=== PATIENT | female | born 1960 | race Caucasian/White ===

== ENCOUNTER → 2018-04-28 | Outpatient (CLI) | payer OTHER ==
[~2018-04-28] MED LIST: IMIQUIMOD1 EACH; Zofran Odt4 MG SL
== END | disposition home or self-care (01) ==
LOC: LAB SHORT 10:37 → PLD 10:37
DX: D48.5 Neoplasm of uncertain behavior of skin (principal)
CPT/HCPCS: 88305

== ENCOUNTER → 2019-09-15 | Outpatient (CLI) | payer OTHER ==
[2019-09-16 13:18] LABS: Stool Occult Blood Guaiac 1 Neg (Neg)
== END ==
LOC: LAB UCHC 15:44 → LAB SHORT 15:44 → LAB SO 09-05 12:15 → LAB FUT 09-05 12:15
PROVIDERS: Registered Nurse Community Health
DX: N95.0 Postmenopausal bleeding (principal); G47.00 Insomnia, unspecified; R63.4 Abnormal weight loss
CPT/HCPCS: 82270

== ENCOUNTER → 2023-06-23 | Outpatient (CLI) | payer OTHER | LOC: LAB SHORT 09:32 → LAB 09:32 | DX: H10.13 Acute atopic conjunctivitis, bilateral (principal) | CPT/HCPCS: 87070; 87205 ==

== ENCOUNTER 2024-02-17 11:39 | Observation (INO) | payer OTHER ==
[~2024-02-17] VITALS: Ht 160 cm; Wt 51.5 kg
[~2024-02-17 11:39] MED LIST changes: -AMLO5 PO; -Acetaminophen650 M1 PO; -NITR100CA PO
[2024-02-17] MEDS ORDERED: NS 1,000 ML IV SCH ×5 (11:50→18:30)
[2024-02-17 12:42] LABS: Magnesium, Blood 2.5 mg/dL (1.6-2.4)
[2024-02-17] MEDS ORDERED: Potassium Chloride 20 MEQ TabCR PO ONE (14:55)
[2024-02-17] MEDS ORDERED: Potassium Chl 10MEQ/Water100ML 100 ML IV ONE (15:55)
[2024-02-17] MEDS ORDERED: Acetaminophen 325 MG TABLET PO PRN (17:40)
[2024-02-17 17:47] LABS: Influenza A, PCR NEGATIVE (NEGATIVE); Influenza B, PCR NEGATIVE (NEGATIVE); Resp Syncytial Virus, PCR NEGATIVE (NEGATIVE); SARS-Cov-2 (COVID-19) PCR, MMC NEGATIVE (NEGATIVE)
[2024-02-17 18:24] LABS: Source, Urine Clean Catch
[2024-02-17 18:27] LABS: Appearance, Urine Cloudy (Clear); Bilirubin, Urine Neg (Neg); Blood, Urine 2+ (Neg); Color, Urine Yellow (P-Yellow); Glucose Qualitative, Urine Neg (Neg); Ketones, Urine Neg (Neg); Leukocyte Esterase, Urine 3+ (Neg); Nitrite, Urine Neg (Neg); Protein, Urine 2+ (Neg); Urobilinogen, Urine 2+ (Normal)
[2024-02-17 18:34] LABS: White Blood Cells, Urine 25-50 /hpf (0-5)
[2024-02-17 18:35] LABS: Bacteria Many /hpf; Squamous Epithelial Cells Few /hpf (Few)
[2024-02-17 19:37] VITALS: BP 173/97
--- NOTE | 2024-02-17 20:32 | NUR ---
PT HAD A UA IN THE ED AT 1527. BASED ON THE UA DR ORDERED A CULTURE. CALLED LAB, THEY HAVE THE PREVIOUS SPECIMINE. ORDER COLLECTED LAB IS AWARE THERE IS NOW AN ORDER FOR CULTURE.
--- NOTE | 2024-02-17 20:57 | NUR ---
PATIENT IS A NEW ADMIT FROM ED END OF DAY SHIFT. AXOX 4 AND INDEPENDENT. DENIES CHEST PAIN, SOB, AND N/V. NS INFUSING FROM ED. NPO ORDER REPORTING SHE HAS DIFFICULTY SWALLOWING AT THIS TIME. ORIENTED TO ROOM AND CALL LIGHT SYSTEM. CALL LIGHT IN REACH. WCTM.
[2024-02-17 21:27] LABS: Bun/Creatinine Ratio 26.1 (12.0-20.0); Calcium, Blood 7.9 mg/dL (8.5-10.1); Creatinine, Blood 1.15 mg/dL (0.40-1.00); Potassium, Blood 3.5 mmol/L (3.5-5.5)
[2024-02-18 04:10] VITALS: BP 151/97
--- NOTE | 2024-02-18 04:47 | NUR ---
SHIFT SUMMARY PATIENT HAD NO ACUTE CHANGES. AXOX 4 AND INDEPENDENT IN ROOM. PIV INTACT. NS INFUSED @ 150 mL/HR X ONE BAG. DENIES CHEST PAIN, SOB, AND N/V. REPORTED LEFT EYE ORBITAL PAIN X ONE AND TYLENOL 650 MG GIVEN PER EMAR. REPORTS LIVES ALONE. COOPERATIVE WITH CARE. CALL LIGHT IN REACH. BED IN LOWEST POSITION. WILL CONTINUE TO MONITOR UNTIL DAY SHIFT NURSE ASSUMES CARE.
[2024-02-18 06:15] LABS: BASOPHILS ABSOLUTE AUTO 0.02 K/mm3 (0.00-0.23); BASOPHILS PERCENT AUTO 0 % (0-2); EOSINOPHILS ABSOLUTE AUTO 0.21 K/mm3 (0.00-0.68); EOSINOPHILS PERCENT AUTO 4 % (0-6); Hematocrit 32.6 % (33.0-51.0); Hemoglobin 10.8 g/dL (11.5-16.0); IMMATURE GRAN ABSOLUTE AUTO 0.02 K/mm3 (0.00-0.10); IMMATURE GRAN PERCENT AUTO 0 % (0-1); LYMPHOCYTES ABSOLUTE AUTO 2.04 K/mm3 (0.84-5.20); LYMPHOCYTES PERCENT AUTO 34 % (21-46); MONOCYTES ABSOLUTE AUTO 0.65 K/mm3 (0.16-1.47); MONOCYTES PERCENT AUTO 11 % (4-13); Mean Corpuscular HGB 31.4 pg (26.0-34.0); Mean Corpuscular HGB Conc 33.1 g/dL (31.5-36.5); Mean Corpuscular Volume 95 fL (80-100); Mean Platelet Volume 10.8 fL (9.1-12.4); NEUTROPHILS ABSOLUTE AUTO 3.14 K/mm3 (1.96-9.15); NEUTROPHILS PERCENT AUTO 52 % (41-73); Platelet Count 170 K/mm3 (150-400); RDW Coefficient Variation 12.6 % (11.7-14.2); RDW Standard Deviation 43.8 fL (35.1-46.3); Red Blood Cell Count 3.44 M/mm3 (3.80-5.20); White Blood Cell Count 6.08 K/mm3 (4.00-11.30)
[2024-02-18 06:31] LABS: Albumin, Blood 3.1 g/dL (3.4-5.0); Albumin/Globulin Ratio 0.9 (0.8-1.8); Bilirubin, Total 0.7 mg/dL (0.1-1.0); Bun/Creatinine Ratio 22.7 (12.0-20.0); Calcium, Blood 8.1 mg/dL (8.5-10.1); Creatinine, Blood 0.97 mg/dL (0.40-1.00); Globulin, Blood 3.3 g/dL (2.2-4.0); Potassium, Blood 3.7 mmol/L (3.5-5.5); Total Protein, Blood 6.4 g/dL (6.4-8.2)
[2024-02-18 07:21] VITALS: BP 160/94
[2024-02-18] MEDS ORDERED: Heparin Sodium,Porcine 5,000 UNIT/0.5 ML SDV SC SCH (09:00)
[2024-02-18] MEDS ORDERED: AmLODIPine Besylate 5 MG Tab PO SCH (09:00)
[2024-02-18] MEDS ORDERED: Acetaminophen650 M1 PO (10:24)
[2024-02-18] MEDS ORDERED: AMLO5 PO (11:00)
[2024-02-18] MEDS ORDERED: NITR100CA PO (11:01)
--- NOTE | 2024-02-18 11:48 | NUR ---
DISCHARGE A&OX4, COOPERATIVE, INDEPENDENT. NO ACUTE EVENTS THIS SHIFT. DENIES CP/PRESSURE, HEADACHE, DIZZINESS, OR SOB. NO REPORTS OF PAIN. DISCHARGE PACKET REVIEWED WITH PATIENT. DENIED ANY QUESTIONS OR CONCERNS. PATIENT DENIED NEED FOR WHEELCHAIR ESCORT. DISCHARGED AT 1153.
[2024-02-18] MEDS ORDERED: Nitrofurantoin/Nitrofuran Mac 100 MG Cap PO SCH (21:00)
== END 2024-02-18 11:52 | disposition home or self-care (01) ==
LOC: ER 11:39 → MEDS 11:40 → ENPENDDIS 02-18 11:27 → MEDS 02-18 11:52
PROVIDERS: Emergency Medicine; Physician Assistant; ADMIT Internal Medicine
DX: N17.9 Acute kidney failure, unspecified (principal); S09.90XA Unspecified injury of head, initial encounter; W19.XXXA Unspecified fall, initial encounter; N39.0 Urinary tract infection, site not specified; R07.0 Pain in throat; I10 Essential (primary) hypertension; R19.7 Diarrhea, unspecified; Z87.891 Personal history of nicotine dependence
CPT/HCPCS: 0241U; 36415; 70450; 80048; 80053; 81001; 82550; 83690; 83735; 85025; 87077; 87086; 87186; 92610; 93005; 93010; 96361; 96365; 96366; 99285-25; A9270; G0378; J3480; J7030

== ENCOUNTER → 2024-02-17 | Outpatient (CLI) | payer OTHER ==
[~2024-02-17] MED LIST changes: +AMLO5 PO; +Acetaminophen650 M1 PO; +NITR100CA PO
[2024-02-17 10:21] LABS: BASOPHILS ABSOLUTE AUTO 0.01 K/mm3 (0.00-0.23); BASOPHILS PERCENT AUTO 0 % (0-2); EOSINOPHILS ABSOLUTE AUTO 0.04 K/mm3 (0.00-0.68); EOSINOPHILS PERCENT AUTO 0 % (0-6); Hematocrit 37.6 % (33.0-51.0); Hemoglobin 12.6 g/dL (11.5-16.0); IMMATURE GRAN ABSOLUTE AUTO 0.03 K/mm3 (0.00-0.10); IMMATURE GRAN PERCENT AUTO 0 % (0-1); LYMPHOCYTES ABSOLUTE AUTO 2.02 K/mm3 (0.84-5.20); LYMPHOCYTES PERCENT AUTO 21 % (21-46); MONOCYTES PERCENT AUTO 8 % (4-13); Mean Corpuscular HGB 30.7 pg (26.0-34.0); Mean Corpuscular HGB Conc 33.5 g/dL (31.5-36.5); Mean Corpuscular Volume 92 fL (80-100); Mean Platelet Volume 10.7 fL (9.1-12.4); NEUTROPHILS ABSOLUTE AUTO 6.86 K/mm3 (1.96-9.15); NEUTROPHILS PERCENT AUTO 70 % (41-73); Platelet Count 201 K/mm3 (150-400); RDW Coefficient Variation 12.8 % (11.7-14.2); RDW Standard Deviation 42.8 fL (35.1-46.3); White Blood Cell Count 9.76 K/mm3 (4.00-11.30)
[2024-02-17 10:33] LABS: Albumin, Blood 3.8 g/dL (3.4-5.0); Albumin/Globulin Ratio 0.9 (0.8-1.8); Bilirubin, Total 0.8 mg/dL (0.1-1.0); Bun/Creatinine Ratio 20.6 (12.0-20.0); Calcium, Blood 9.5 mg/dL (8.5-10.1); Creatinine, Blood 2.14 mg/dL (0.40-1.00); Globulin, Blood 4.4 g/dL (2.2-4.0); Total Protein, Blood 8.2 g/dL (6.4-8.2)
== END ==
LOC: LAB SHORT 10:17 → LAB 10:17
PROVIDERS: Physician Assistant
DX: R55 Syncope and collapse (principal)
CPT/HCPCS: 80053; 85025

== ENCOUNTER → 2024-08-29 | Outpatient (CLI) | payer OTHER ==
[~2024-08-29] MED LIST changes: +AMLO5 PO; +Acetaminophen650 M1 PO; +NITR100CA PO
== END ==
LOC: LAB SHORT 12:43 → LAB 12:43
DX: N39.0 Urinary tract infection, site not specified (principal)
CPT/HCPCS: 87077; 87086; 87186